=== PATIENT | male | born 1950 | race Caucasian/White ===

== ENCOUNTER 2024-05-16 10:37 | Emergency (ER) | payer MEDICARE, OTHER, SELFPAY ==
[2024-05-16 11:09] VITALS: BP 135/85
[2024-05-16 11:49] LABS: Hematocrit 44.6 % (39.0-52.0); Hemoglobin 14.8 g/dL (13.0-18.0); Mean Corp Hgb Conc. 33.2 g/dL (33.0-37.0); Mean Corpuscular Hgb 31.7 pg (27.0-31.0); Mean Corpuscular Volume 95.5 fL (80.0-94.0); Platelet Count 182 10^3/uL (130-400); Red Blood Cell Count 4.67 10^6/uL (4.70-6.10); Red Cell Dist. Width 13.5 % (11.5-14.5); White Blood Cell Count 4.9 10^3/uL (4.8-10.8)
[2024-05-16 11:56] LABS: ALT (SGPT) 20 U/L (0-50); AST (SGOT) 30 U/L (17-59); Albumin 3.9 g/dl (3.5-5.0); Alkaline Phosphatase 71 U/L (38-126); Blood Urea Nitrogen 21 mg/dl (9-20); Calcium 9.1 mg/dl (8.4-10.2); Carbon Dioxide 25 mmol/L (22-30); Chloride 99 mmol/L (98-107); Glucose 95 mg/dl (70-99); Sodium 133 mmol/L (135-145); Total Bilirubin 0.8 mg/dl (0.2-1.3); Total Protein 6.6 g/dl (6.3-8.2); eGFR > 60.00
[2024-05-16 11:58] LABS: COVID-19 Antigen Negative (Negative)
[2024-05-16 12:10] LABS: Potassium 4.8 mmol/L (3.5-5.1)
[2024-05-16 12:36] LABS: % Basophils 1.6 % (0-2); % Eosinophils 1.4 % (0-6); % Immature Granulocytes 0.2 % (0-0.5); % Lymphocytes 20.3 % (20.5-51.1); % Monocytes 16.4 % (1.7-9.3); % Neutrophils 60.1 % (42.2-75.2); Absolute Basophils 0.1 10^3/uL (0-0.2); Absolute Eosinophils 0.1 10^3/uL (0-0.7); Absolute Monocytes 0.8 10^3/uL (0.1-0.6); Nucleated Red Blood Cells % 0 % (-)
--- NOTE | 2024-05-16 12:48 | ED.GENMED ---
History of Present Illness
General
Chief Complaint: Abdominal Symptoms
Time Seen by Provider: 05/16/24 12:27
History of Present Illness
History of Present Illness:
73-year-old male presents to the emergency department for evaluation of persistent diarrhea for the past 6 days associated with minor weight loss and diffuse body aches. No fevers or vomiting. Did report mild abdominal cramping this morning that
is since subsided. No ill contacts at home. Denies recent suspicious food intake. No antibiotics in the past 90 days.
Review of Systems
Review of Systems
Allergies reviewed?: Yes
All Other Systems: ROS reviewed and negative except as documented in HPI and ROS
Phy Exam
Physical Exam
Physical Exam:
GEN: Well appearing, NAD, WDWN
HEENT: Oral mucosa moist, no scleral icterus
Cardiac: Regular rate and rhythm, no murmurs
Lung: No respiratory distress, no tachypnea
Abdomen: Soft, grossly nontender
MSK: No gross deformity or injuries
Skin: Good color, no pallor or jaundice, no rashes
Neuro: AO x3, moves all extremities freely
Psych: Calm, cooperative
Course
Orders/Labs/Results
Orders:
Orders
05/16/24 11:18
COVID-19 Antigen Urgent
Source: Nasal Swab
Complete Blood Count/With Diff Urgent
Comprehensive Metabolic Panel Urgent
Influenza A+B Rapid Molecular Urgent
[facility] Source: Nasal Swab
Specimen Description:
05/16/24 12:48
0.9% Sodium Chloride 1000 ml [Nss] 1,000 ml IV BOLUS
05/16/24 14:37
Norovirus by PCR Urgent
[facility] Source: Feces/Stool
Specimen Description:
Date Specimen was Collected: 05/16/24
Time Specimen was Collected: 14:35
05/16/24 14:39
Add On - Microbiology Urgent
Tests Added?: stool culture
Abnormal Lab Results
05/16/24
11:18
RBC 4.67 L 10^6/uL
(4.70-6.10)
MCV 95.5 H fL
(80.0-94.0)
MCH 31.7 H pg
(27.0-31.0)
Absolute Lymphs (auto) 1.0 L 10^3/uL
(1.2-3.4)
Absolute Monos (auto) 0.8 H 10^3/uL
(0.1-0.6)
Lymphocytes % 20.3 L %
(20.5-51.1)
Monocytes % 16.4 H %
(1.7-9.3)
Sodium 133 L mmol/L
(135-145)
BUN 21 H mg/dl
(9-20)
05/16/24 11:18
05/16/24 11:18
Vital Signs
Initial and Last Documented VS:
Initial Vital Signs
Temp Pulse Resp BP Pulse Ox
98.0 F 87 18 135/85 100
05/16/24 11:09 05/16/24 11:09 05/16/24 11:09 05/16/24 11:09 05/16/24 11:09
Last Documented Vital Signs
Temp Pulse Resp BP Pulse Ox
98.5 F 67 20 117/76 99
05/16/24 13:24 05/16/24 13:24 05/16/24 13:24 05/16/24 14:00 05/16/24 14:15
MDM/Problems Addressed
MDM/Problems Addressed:
Likely self-limited viral syndrome versus foodborne pathogen. He is improving at this time however will send for stool cultures as the duration may warrant antibiotics if not improving. Labs reassuring, given IV fluids for rehydration
*Critical Care Note
Total Time (30-74mins, 75-104mins- exclusive of procedures): Not Applicable
ED Attending Note
-
Portions of this chart may have been created with voice recognition software.� Occasional wrong word or��sound alike� substitutions may have occurred due to the inherent limitations of voice recognition software.
Discharge Plan
Departure
Patient Disposition: Home (Routine Discharge)
Date of Disposition: 05/16/24
Time of Disposition: 13:56
Patient with high blood pressure during this ER visit?: No
Discharge Problem:
Diarrhea
Instructions: Diarrhea in teens and adults
Prescriptions:
No Action
No Current Medications
0
Referrals:
Vivi Griffith MD [Family Provider] -
Activity Restrictions/Additional Instructions:
Collect stool specimens and return to the outpatient lab or wellness center
Interventions
Interventions:
*Risk Screen - Suicide Last Done: 05/16/24 13:24
*General Assessment Last Done: 05/16/24 13:24
*Neglect/Abuse Screening Last Done: 05/16/24 13:24
ED- Fall Risk Assessment Last Done: 05/16/24 13:24
*ED COVID-19 Vaccine History Last Done: 05/16/24 13:24
*Nursing Disposition Last Done: 05/16/24 14:20
FG-Zzbvoo-Xlvvdyafvz Assessment Last Done: 05/16/24 13:24
ED- Pulmonary Assessment Last Done: 05/16/24 13:24
Discharge Date and Time
Discharge Date/Time: 05/16/24 14:22
Print Language: KHMER
[2024-05-16 13:22] VITALS: BP 124/83
[2024-05-16 13:24] VITALS: BP 124/83; BMI 23.8
[2024-05-16] MEDS: NSS 1000 IV (13:32)
[2024-05-16 14:00] VITALS: BP 117/76
--- NOTE | 2024-05-16 14:41 | EDRN ---
after the pt had been discharged the pt approached the charge nurse Magali MONDRAGON and placed a fecal sample on the charge nurse desk and stated to Magali RN, 'I pooped and i need it sent to the lab', Magali RN notified the pt that she would notify this RN,
this RN was notified and this RN then notified Yogi OGDEN who placed the order to collect the stool sample, this RN entered the pts room and before this RN could speak and update the pt, the pt stated, 'So i need you to send this to the lab now i
am not waiting here another hour for you to do your job, i want to leave', the pt stood up and started to walk to the door of ED Bed #8, this RN stated to the pt that this RN would need to scan his wrist band and verify his information before
sending the stool sample to the lab and asked the pt if he could please wait just a minute, the pt then stated to this RN, 'First of all i want to leave, second of all you need to do your job and third of all you need to not be rude to me i am the
patient', this RN educated the pt that this RN was not being rude to the pt and this RN stated to the pt that this RN is sorry if the pt feels that way however this RN educated the pt that this RN was trying to help the pt and sent off the stool
sample so that it could get tested and in order for that RN to do that this RN would need to verify the pts information and scan the pts wrist band to obtain a label for the lab, the pt turned around and sat back in the chair of ED Bed #8 and stated
to this RN, 'Fine just hurry up and do what you have to do, and with other patients maybe you won't be so rude, i am a patient and need to get home and i am not waiting any longer so hurry up', this RN verified the pts information, scanned the pt
wrist band, and obtained a label for the pts stool specimen, the pt then walked out of ED Bed #8 and left the emergency room with discharge instructions in hand
== END 2024-05-16 14:22 | disposition home or self-care (01) ==
LOC: EMR 10:37
PROVIDERS: EMERGENCY PHYSICIAN Emergency Medicine; FAMILY PHYSICIAN Internal Medicine
DX: R19.7 Diarrhea, unspecified (principal); R10.9 Unspecified abdominal pain; M79.10 Myalgia, unspecified site; R63.4 Abnormal weight loss; Z11.52 Encounter for screening for COVID-19
CPT/HCPCS: 99284; 96360; 80053; 85025; 87045; 87046; 87427; 87502; 87798; 87811

== ENCOUNTER 2025-03-03 20:43 | Emergency (ER) | payer MEDICARE, OTHER, SELFPAY ==
[2025-03-03] VITALS (7 sets, daily range): BP systolic 125–141; BP diastolic 70–83; PULSE 54–64; BMI 22.7
[2025-03-03 20:59] LABS: Hematocrit 41.0 % (39.0-52.0); Hemoglobin 13.3 g/dL (13.0-18.0); Mean Corp Hgb Conc. 32.4 g/dL (33.0-37.0); Mean Corpuscular Volume 94.9 fL (80.0-94.0); Nucleated Red Blood Cells % 0 % (-); Platelet Count 193 10^3/uL (130-400); Red Cell Dist. Width 13.7 % (11.5-14.5)
[2025-03-03 21:21] LABS: ALT (SGPT) 22 U/L (0-50); AST (SGOT) 30 U/L (17-59); Albumin 4.0 g/dl (3.5-5.0); Alkaline Phosphatase 72 U/L (38-126); Blood Urea Nitrogen 29 mg/dl (9-20); Calcium 9.0 mg/dl (8.4-10.2); Carbon Dioxide 28 mmol/L (22-30); Chloride 107 mmol/L (98-107); Estimated Creatinine Clearance 55 ml/min; Glucose 78 mg/dl (70-99); Potassium 4.2 mmol/L (3.5-5.1); Sodium 139 mmol/L (135-145); Total Protein 6.6 g/dl (6.3-8.2); eGFR > 60.00
--- NOTE | 2025-03-03 22:12 | ED.GENMED ---
History of Present Illness
General
Chief Complaint: Fainting Sensation
Time Seen by Provider: 03/03/25 20:49
Nursing documentation reviewed up to this point in time: agreed with
History of Present Illness
History of Present Illness:
74-year-old male presents to the ER for evaluation of near syncopal event that occurred just prior to arrival. Patient has no prior history of syncope. He states that he was standing in the kitchen making dinner when he all of a sudden felt if
flash or disturbance in his vision and then became overwhelmingly weak. He dropped to the floor. No loss of consciousness. He did not strike his head. He denies any chest pain or palpitations. He reports that he has been eating and drinking
normally, although there may be some increased stress this week as his just had double mastectomy. Patient denies any urinary complaints. No blood in his stools. No unexplained weight loss or weight gain. No recent reported fevers or
chills. He denies any change in his vision at the current time. He has been experiencing occasional floaters in the past several weeks but has not yet seen his roll hauler. He is a very active runner, no recent change in exercise tolerance.
No peripheral edema. He is on blood pressure medication, no recent change in dosing.
Phy Exam
Physical Exam
Physical Exam:
Patient is awake, alert, appears in no acute distress, head is NCAT, wearing glasses, PERRL, EOMI mucous membranes moist, conjunctiva pink, heart regular bradycardic rate and rhythm without murmurs or ectopy, lungs are clear to auscultation without
wheezes rales or rhonchi, no JVD, abdomen is soft and nontender on palpation, extremities without edema, GCS is 15, no dysdiadochokinesia, no ataxia, no pronator drift, NIH stroke scale is 0
Course
Orders/Labs/Results
Orders:
Orders
03/03/25 20:45
Electrocardiogram (*1) Urgent
Reason for Study: Syncope
EKG- Treatment ONCE
03/03/25 20:46
Complete Blood Count/With Diff Urgent
Comprehensive Metabolic Panel Urgent
03/03/25 21:03
CR Chest - 2 Views Urgent
Comment:
Reason For Exam: syncope
03/03/25 21:35
CT Head W/o Iv Contrast Urgent
Comment:
Reason For Exam: near syncope
Orthostatic VS- Treatment ONCE
03/03/25 22:08
Urinalysis Reflex To Culture Urgent
Date Specimen was Collected: 03/03/25
Time Specimen was Collected: 22:05
Urine Microscopic Reflex Cult Urgent
Abnormal Lab Results
03/03/25 03/03/25
20:46 22:08
RBC 4.32 L 10^6/uL
(4.70-6.10)
MCV 94.9 H fL
(80.0-94.0)
MCHC 32.4 L g/dL
(33.0-37.0)
BUN 29 H mg/dl
(9-20)
Urine Albumin (Reflex) 1+ A
(Neg - Trace)
03/03/25 20:46
03/03/25 20:46
Normal CBC, mild increased BUN with preserved creatinine, although this is not dissimilar compared to prior values from 05/16/2024. Urinalysis normal
Vital Signs
Initial and Last Documented VS:
Initial Vital Signs
Temp Pulse Resp BP Pulse Ox
97.7 F 54 15 141/83 99
03/03/25 20:46 03/03/25 20:46 03/03/25 20:46 03/03/25 20:46 03/03/25 20:46
Last Documented Vital Signs
Temp Pulse Resp BP Pulse Ox
97.7 F 50 13 127/71 99
03/03/25 20:46 03/04/25 00:00 03/04/25 00:00 03/04/25 00:00 03/04/25 00:00
MDM/Problems Addressed
Differential Diagnosis Includes:
Differential diagnosis to consider but not limited to vasovagal episode, dehydration, lecture dyscrasia, anemia, arrhythmia along with other etiologies considered
Chronic conditions affecting care:
Hypertension
*Radiology
Radiology exam reviewed: radiology read reviewed (CT head result reviewed IMPRESSION: No acute intracranial abnormality noted.)
*Pulse Oximetry
SaO2: 99
Oxygen Mode of Delivery: Room air
Patient hypoxic: no
*EKG
Interpreted by ED Provider?: Yes (I independently viewed interpreted twelve-lead EKG showing sinus bradycardia, rate 52, normal axis, normal intervals, this is a likely normal variant, no prior for comparison)
*Earth Science Teacher Interpretation
Rate: bradycardiac (I Diveley viewed interpreted rhythm strip showing sinus bradycardia)
*Critical Care Note
Total Time (30-74mins, 75-104mins- exclusive of procedures): Not Applicable
Update Note
Update Note:
Patient resting comfortably throughout time in the emergency department. Vital signs stable, orthostatic vital signs negative. Patient has persistent bradycardia, likely chronic as he is an avid runner. I discussed with patient and present
bedside all test results-no evidence for acute worrisome lab abnormality. No evidence for arrhythmia other than stable bradycardia on the monitor without any evidence of hypotension. I discussed with them likely multifactorial etiology of symptoms
of near syncope-I discussed with him need to have close outpatient follow-up with his primary care physician for reevaluation. He and his expressed understanding full discharge instructions, need to increase oral fluid intake, and had no
questions prior to leaving the department.
ED Attending Note
-
Portions of this chart may have been created with voice recognition software.� Occasional wrong word or��sound alike� substitutions may have occurred due to the inherent limitations of voice recognition software.
Discharge Plan
Departure
Patient Disposition: Home (Routine Discharge)
Date of Disposition: 03/03/25
Time of Disposition: 23:57
Patient with high blood pressure during this ER visit?: No
Discharge Problem:
Near syncope
Instructions: Bradycardia (DC), Near Fainting (DC)
Prescriptions:
No Action
No Current Medications
0
Referrals:
Vivi Griffith MD [Non-Admitting Privileges, Internal Medicine] - Next open appointment
UNKNOWN - PT DOES,NOT KNOW [Family Provider]
Activity Restrictions/Additional Instructions:
Encourage fluids-you should be drinking at least eight 8 ounce glasses of water daily. Please follow-up with your doctor this week for reevaluation and further care. Return to the ER for any concerns.
Interventions
Interventions:
*Risk Screen - Suicide Last Done: 03/03/25 20:46
*General Assessment Last Done: 03/03/25 20:46
*Neglect/Abuse Screening Last Done: 03/03/25 20:46
*ED- Fall Risk Assessment Last Done: 03/03/25 20:46
*ED COVID-19 Vaccine History Last Done: 03/03/25 20:46
*ED Influenza Vaccine History Last Done: 03/03/25 20:46
*Nursing Disposition Last Done: 03/04/25 00:36
ED- Cardiac Assessment Last Done: 03/03/25 20:46
ED- Neurological Assessment Last Done: 03/03/25 20:46
Discharge Date and Time
Discharge Date/Time: 03/04/25 00:30
Print Language: SPANISH
[2025-03-03 22:19] LABS: Urine Character Clear (Clear)
[2025-03-03 22:28] LABS: Urine Red Blood Cell 0-2 /HPF (0-2); Urine Squamous Cell 0-2 /LPF (Few)
[2025-03-04] VITALS: BP 127/71
== END 2025-03-04 00:30 | disposition home or self-care (01) ==
LOC: EMR 20:43
PROVIDERS: EMERGENCY PHYSICIAN Emergency Medicine
DX: R55 Syncope and collapse (principal); R00.1 Bradycardia, unspecified; I10 Essential (primary) hypertension; Z63.79 Other stressful life events affecting family and household
CPT/HCPCS: 99284; 70450; 71046; 80053; 81003; 81015; 85025; 93005